=== PATIENT | female | born 1965 | race Caucasian/White ===

== ENCOUNTER → 2017-06-25 | Outpatient (CLI) | payer BC ==
--- NOTE | 2017-06-26 11:41 | MAM ---
EXAM DESCRIPTION: 3D Screening BILATERAL : Digital Mammography. CLINICAL HISTORY: 52 years Female SCREENING . No complaints. No family history breast cancer. Postmenopausal. Taking HRT 5 or more years ago. COMPARISON: Baseline study at this facility. No prior reports available. TECHNIQUE: Bilateral CC and MLO projection full-field images, 3-D tomosynthesis digital mammographic technique. Also bilateral synthesized CC/ MLO full-field images. CAD not utilized. FINDINGS: The breast parenchymal density pattern is: Scattered areas of fibroglandular density. No skin thickening or nipple retraction bilateral solitary microcalcifications. Right axillary lymph nodes. Focal asymmetry in the retroareolar left breast at the 230 clock position approximately 3 cm from the nipple. No associated microcalcifications. Retroareolar fibroglandular tissues less prominent in the right breast. No focal, stellate mass or density, focal asymmetry , and no suspicious microcalcifications right breast. IMPRESSION: BI-RADS CATEGORY: 0 - INCOMPLETE- Need additional imaging evaluation. FOLLOW-UP: Recall for additional imagin-D tomosynthesis left breast full-field images and LM and CC projection, followed by targeted left breast ultrasound. Written communication concerning the IMPRESSION and Follow-up, will be mailed to the patient and referring health care provider. Electronically signed by: Ze Almeida MD 06/26/2017 11:40 AM HUMAN RESOURCES BENEFITS ASSISTANT
== END | disposition home or self-care (01) ==
LOC: MAMMO 11:07
PROVIDERS: ATTEND Family Medicine
DX: Z12.31 Encounter for screening mammogram for malignant neoplasm of breast (principal)
CPT/HCPCS: 77063; G0202

== ENCOUNTER → 2017-07-01 | Outpatient (CLI) | payer BC | END | disposition home or self-care (01) | LOC: GMA 17:35 | PROVIDERS: ATTEND Physician Assistant | DX: M79.661 Pain in right lower leg (principal) ==

== ENCOUNTER → 2017-07-03 | Outpatient (CLI) | payer BC ==
--- NOTE | 2017-07-04 21:06 | US ---
EXAM DESCRIPTION: Venous,Lower Extremity RT: ULTRASOUND. CLINICAL HISTORY: PAIN IN RIGHT LOWER LEG COMPARISON: None Available. TECHNIQUE: Two -dimensional and doppler sonographic evaluation of the deep venous system of the right lower extremity. FINDINGS: Doppler evaluation shows normal color flow and normal phasicity and augmentation of the right common femoral vein, femoral vein, popliteal vein, greater/lesser saphenous vein, peroneal, and posterior tibial vein. The right lower extremity deep veins showed normal occlusion with transducer pressure. Two-dimensional survey showed no echogenic thrombus within these veins. IMPRESSION: 1. Duplex ultrasound evaluation of the right lower extremity deep venous system showing no evidence of thrombosis or embolism. Electronically signed by: Ze Almeida MD 07/04/2017 9:04 PM STEPDOWN NURSE Workstation: [id number]
--- NOTE | 2017-07-04 21:39 | US ---
EXAM DESCRIPTION: Breast,Left: Ultrasound CLINICAL HISTORY: 52 yearsFemaleABNORMAL MAMMO COMPARISON: Digital 3-D tomosynthesis diagnostic mammogram left breast this visit. Bilateral 3-D tomosynthesis screening study 06/25/2017. TECHNIQUE: Transcutaneous scanning of the left lateral breast utilizing two-dimensional and Doppler modes. Scanning performed by the chief wheelage clerk and Dr. Almeida. FINDINGS: Scanning at the 300 clock position of the left breast from the nipple posteriorly 3 cm. Heterogeneous fibroglandular and fatty tissues. No discrete solid mass. No cyst. No overlying skin changes. No parenchymal edema or large calcifications. IMPRESSION: 1. Bi-Rads Category 2: Benign. 2. Please refer to 3-D tomosynthesis diagnostic mammogram of the left breast and report on this visit. The FINDINGS and the follow-up plan were reviewed in person with the patient after the examination. Written communication explaining the IMPRESSION and follow-up will be mailed to the patient and referring care provider. Electronically signed by: Ze Almeida MD 07/04/2017 9:37 PM [facility] Workstation: [id number]
--- NOTE | 2017-07-05 12:00 | MAM ---
EXAM DESCRIPTION: 3D Diagnostic, Left: Digital Mammography CLINICAL HISTORY: 52 yearsFemaleABNORMAL MAMMO . Focal asymmetry retroareolar left breast.. No complaints. COMPARISON: Digital 3-D tomosynthesis bilateral screening 06/25/2017. Targeted left breast ultrasound following this examination.. Report from prior examination also reviewed. TECHNIQUE: Left breast LM projection full-field images, 3-D tomosynthesis digital mammographic technique. Also left breast synthesized LM full-field images. 2-D digital craniocaudal spot compression retroareolar left breast. CAD on the 2-D digital images. FINDINGS: The breast parenchymal density pattern is: Scattered areas of fibroglandular density. No skin thickening or nipple retraction no focal asymmetry is noted on the spot compression images over the full-field lateral medial projections of the left breast. ULTRASOUND: Scanning at the 300 clock position of the left breast from the nipple posteriorly 3 cm. Heterogeneous fibroglandular and fatty tissues. No discrete solid mass. No cyst. No overlying skin changes. No parenchymal edema or large calcifications. IMPRESSION: BI-RADS CATEGORY: 2 - BENIGN FINDINGS. FOLLOW UP: Return to routine digital bilateral screening, one year interval from May 2017. The FINDINGS and the follow-up plan were reviewed in person with the patient after the examination. Written communication explaining the IMPRESSION and follow-up will be mailed to the patient and referring care provider. According to the [employer], yearly mammograms are recommended starting at age 40 and continuing as long as a woman is in good health. Any breast change noted on a breast self-exam should be reported promptly to the patient's healthcare provider. Breast MRI is recommended for women with an approximately 20-25% or greater lifetime risk of breast cancer, including women with a strong family history of breast or ovarian cancer and women who have been treated for Hodgkin's disease. A negative mammographic report should not delay tissue diagnosis in patients with significant clinical history or physical findings. Extremely dense breast tissue limits the sensitivity of digital mammography. Electronically signed by: Ze Almeida MD 07/05/2017 11:59 AM INSTRUCTIONAL SUPPORT TECHNICIAN
== END | disposition home or self-care (01) ==
LOC: MAMMO 15:25
PROVIDERS: ATTEND Family Medicine
DX: R92.8 Other abnormal and inconclusive findings on diagnostic imaging of breast (principal)
CPT/HCPCS: 76641; 93971; G0206; G0279

== ENCOUNTER 2017-07-05 11:54 | Emergency (ER) | payer BC ==
[2017-07-05 12:11] VITALS: TEMP 99.3
--- NOTE | 2017-07-05 12:12 | ED.PDOC ---
History of Present Illness - General Chief Complaint: Cardiovascular Problem Stated Complaint: dizzy, nausea Time Seen by Provider: 07/05/17 12:11 Source: patient Exam Limitations: no limitations - History of Present Illness Initial Comments: Sharri Maloney 52 y/om female stated that she felt nauseated all day since yesterday with dull headache all over able to go to work ate breakfast this am.Denies vomiting,fever ,diarrhea,cough.Denies chest pain. Timing/Duration: 24 hours Severity: moderate Improving Factors: rest Worsening Factors: nothing Associated Symptoms: other - see hpi Allergies/Adverse Reactions: Allergies Butorphanol [From Stadol] Allergy (Verified 07/05/17 12:09) Nausea Penicillins Allergy (Verified 07/05/17 12:09) Rash Home Medications: Ambulatory Orders Ondansetron [Zofran Odt] 4 mg PO Q8HRS PRN #10 tab 07/05/17 Review of Systems - Review of Systems Constitutional: States: no symptoms reported EENTM: States: no symptoms reported Respiratory: States: no symptoms reported Cardiology: States: no symptoms reported Gastrointestinal/Abdominal: States: no symptoms reported, see HPI Genitourinary: States: no symptoms reported Musculoskeletal: States: no symptoms reported Skin: States: no symptoms reported Neurological: States: no symptoms reported Past Medical History (General) - Patient Medical History Hx Cardiac Disorders: Yes - PAT Hx Hypertension: Yes Hx Gastroesophageal Reflux: Yes Hx Other PMH: Yes - dvt,RA,Collagen Colitis Surgical History: appendectomy, other - ,hysterectomy,c-spine - Vaccination History Hx Tetanus, Diphtheria Vaccination: No Hx Influenza Vaccination: No - Social History Hx Tobacco Use: No Hx Alcohol Use: No Hx Substance Use: No Hx Substance Use Treatment: No Hx Depression: No - Activities of Daily Living Patient Lives Alone: No - Female History Patient is a Female of Child Bearing Age (10 -59 yrs old): No Family Medical History - Family History Mother Family History: Unknown Hx Cardiac Disease: Yes - multiple family members Hx Family Diabetes: Yes - multiple family members Hx Family;Other: PSORIATIC ARTHRITIS-son Physical Exam - Physical Exam General Appearance: Alert, Anxious, No apparent distress Eye Exam: bilateral normal Ears, Nose, Throat: hearing grossly normal, normal ENT inspection, normal pharynx Neck: non-tender, full range of motion, supple Respiratory: chest non-tender, lungs clear, normal breath sounds Cardiovascular/Chest: normal peripheral pulses, regular rate, rhythm, no gallop , no murmur, tachycardia - hr-120 Peripheral Pulses: radial,right: 2+, radial,left: 2+ Gastrointestinal/Abdominal: normal bowel sounds, non tender, soft, no organomegaly Back Exam: normal inspection, no CVA tenderness, no vertebral tenderness Neurologic: no motor/sensory deficits, alert, oriented x 3 Skin Exam: normal color, warm/dry Lymphatic: no adenopathy Progress - Progress Progress: 07/05/17 12:19 Last Vital Signs Temp 99.3 F 07/05/17 12:02 Pulse 125 H 07/05/17 12:10 Resp 20 07/05/17 12:02 BP 143/105 07/05/17 12:02 Pulse Ox 100 07/05/17 12:02 07/05/17 15:29 No further nausea/vomiting since arrival at er sitting mostly on her bed talking - Results/Orders Results/Orders: Laboratory Tests 07/05/17 07/05/17 07/05/17 12:12 12:57 12:57 WBC 16.0 H RBC 5.16 Hgb 14.5 Hct 43.2 MCV 83.8 MCH 28.1 MCHC 33.5 RDW 14.6 H Plt Count 319 MPV 6.8 L Absolute Neuts (auto) 11.60 H Absolute Lymphs (auto) 2.50 Absolute Monos (auto) 1.70 H Absolute Eos (auto) 0.00 Absolute Basos (auto) 0.20 H Neutrophils % 72.7 Lymphocytes % 15.6 L Monocytes % 10.6 H Eosinophils % 0.1 L Basophils % 1.0 PT 11.8 INR 1.040 PTT (SP) 24.2 L D-Dimer, Quantitative < 200 Sodium 134 L Potassium 3.1 L Chloride 98 L Carbon Dioxide 22 Anion Gap 17.1 BUN 30 H Creatinine 1.56 H BUN/Creatinine Ratio 19.2 Random Glucose 165 H Serum Osmolality 278.1 Calcium 9.9 Magnesium 1.9 Total Bilirubin 0.5 Direct Bilirubin 0.1 Indirect Bilirubin 0.4 AST 24 ALT 34 Alkaline Phosphatase 97 Creatine Kinase 41 CK-MB (CK-2) 0.8 CK-MB (CK-2) % Not Reportable Troponin I 0.03 B-Natriuretic Peptide 35.0 Serum Total Protein 8.1 Albumin 4.2 Lipase Urine Color Urine Appearance Urine pH Ur Specific [place] Urine Protein Urine Glucose (UA) Urine Ketones Urine Blood Urine Nitrite Urine Bilirubin Urine Urobilinogen Ur Leukocyte Esterase Urine RBC Urine WBC Ur Epithelial Cells Urine Bacteria Urine Opiates Screen Negative Urine Barbiturates Positive H Ur Phencyclidine Scrn Negative U Amphetamin/Meth Scrn Negative U Benzodiazepines Scrn Negative U Cocaine Metab Screen Negative U Cannabinoids Screen Negative 07/05/17 07/05/17 12:57 13:51 WBC RBC Hgb Hct MCV MCH MCHC RDW Plt Count MPV Absolute Neuts (auto) Absolute Lymphs (auto) Absolute Monos (auto) Absolute Eos (auto) Absolute Basos (auto) Neutrophils % Lymphocytes % Monocytes % Eosinophils % Basophils % PT INR PTT (SP) D-Dimer, Quantitative Sodium Potassium Chloride Carbon Dioxide Anion Gap BUN Creatinine BUN/Creatinine Ratio Random Glucose Serum Osmolality Calcium Magnesium Total Bilirubin Direct Bilirubin Indirect Bilirubin AST ALT Alkaline Phosphatase Creatine Kinase CK-MB (CK-2) CK-MB (CK-2) % Troponin I B-Natriuretic Peptide Serum Total Protein Albumin Lipase 30 Urine Color Yellow Urine Appearance Cloudy Urine pH 5.5 Ur Specific [place] >= 1.030 Urine Protein 30 Urine Glucose (UA) Negative Urine Ketones 15 H Urine Blood Negative Urine Nitrite Negative Urine Bilirubin Moderate Urine Urobilinogen 0.2 Ur Leukocyte Esterase Trace H Urine RBC 0 Urine WBC 1-3 Ur Epithelial Cells 5-10 Urine Bacteria Rare Urine Opiates Screen Urine Barbiturates Ur Phencyclidine Scrn U Amphetamin/Meth Scrn U Benzodiazepines Scrn U Cocaine Metab Screen U Cannabinoids Screen - EKG/XRAY/CT EKG: Sinus, Tachy Comments: HR-121;low voltage qrs XRAY: abdomen - no acute abnormalities Departure - Departure Clinical Impression: Dehydration symptoms, Hypokalemia due to loss of potassium Nausea & vomiting Qualifiers: Vomiting type: unspecified Vomiting Intractability: non-intractable Qualified Code(s): R11.2 - Nausea with vomiting, unspecified Time of Disposition: 14:31 Disposition: Discharge to Home or Self Care Departure Forms: ED Discharge - Pt. Copy, Patient Portal Self Enrollment Instructions: Nausea and Vomiting-Adult Diet: other - clear liquids for tonight then to advance diet as tolerated;Avoid spicy ,greasy,chiken noodle soups Referrals: Jonathon Malhotra MD [Primary Care Provider] - 1-2 Weeks Prescriptions: Ondansetron [Zofran Odt] 4 mg PO Q8HRS PRN #10 tab PRN Reason: Nausea Home Medications: Ambulatory Orders Ondansetron [Zofran Odt] 4 mg PO Q8HRS PRN #10 tab 07/05/17 Additional Instructions: RETURN TO ER NEEDED IF SYMPTOMS WORSENS
[2017-07-05] MEDS ORDERED: SODIUM CHLORIDE 0.9% 1000ML 1,000 ML IVS ONE (12:14)
[2017-07-05] MEDS ORDERED: PROMETHAZINE HCL INJ 25 MG/ML VIAL IM ONE (12:48)
--- NOTE | 2017-07-05 13:42 | RAD ---
EXAM DESCRIPTION: Chest,1 View CLINICAL HISTORY: 52 years, Female, pain COMPARISON: FINDINGS: Adequate inspiration. No consolidation. Some minimal fibrotic changes at the bases. Cardiac silhouette normal. Cervical spine surgery noted. IMPRESSION: Clear lungs and normal cardiac silhouette Electronically signed by: Keven Jennings MD 07/05/2017 1:41 PM [facility]
--- NOTE | 2017-07-05 14:17 | RAD ---
EXAM DESCRIPTION: Abdomen Flat Upright CLINICAL HISTORY: pain COMPARISON: None. FINDINGS: AP supine and upright views of the abdomen show a nonspecific, nonobstructive bowel gas pattern with no evidence for free intraperitoneal air. No air-filled dilated loops of small bowel are seen. No significant air-fluid levels are identified. No obvious organomegaly is seen. No abnormal calcifications are seen in the expected location of the renal collecting systems. Visualized lung bases are unremarkable. IMPRESSION: Nonspecific abdominal series Electronically signed by: Sae Anand MD 07/05/2017 2:16 PM CHILDREN'S ATTENDANT
[2017-07-05 14:26] VITALS: O2SAT 100
[2017-07-05] MEDS ORDERED: SODIUM CHLORIDE 0.9% 500ML 500 ML IVS ONE (14:32)
[2017-07-05 15:37] VITALS: BP 150/94
== END 2017-07-05 15:36 | disposition home or self-care (01) ==
LOC: ER 11:54
DX: E87.6 Hypokalemia (principal); E86.0 Dehydration; R11.2 Nausea with vomiting, unspecified; Z88.0 Allergy status to penicillin; Z88.8 Allergy status to other drugs, medicaments and biological substances; Z79.899 Other long term (current) drug therapy; I10 Essential (primary) hypertension; K21.9 Gastro-esophageal reflux disease without esophagitis
CPT/HCPCS: 36415; 71010; 74010; 80048; 80076; 80307; 81001; 82550; 82553; 83605; 83690; 83880; 84484; 85025; 85379; 85610; 85730; 87502; 93005; J2550; J7030; J7040

== ENCOUNTER → 2017-09-26 | Outpatient (CLI) | payer BC | LOC: GMAJ 10:36 | PROVIDERS: ATTEND Family Medicine | DX: I10 Essential (primary) hypertension (principal) ==

== ENCOUNTER → 2018-03-27 | Outpatient (CLI) | payer BC | LOC: GMAJ 10:30 | PROVIDERS: ATTEND Family Medicine | DX: I10 Essential (primary) hypertension (principal) ==

== ENCOUNTER → 2018-08-08 | Outpatient (CLI) | payer BC | LOC: GMAJ 11:43 | PROVIDERS: ATTEND Family Medicine | DX: E55.9 Vitamin D deficiency, unspecified (principal) ==

== ENCOUNTER → 2018-10-16 | Outpatient (CLI) | payer BC ==
--- NOTE | 2018-10-17 07:49 | MRI ---
EXAM: Lumbar Spine w/o Contrast CLINICAL HISTORY: LOW BACK PAIN COMPARISON STUDY: MRI lumbar spine without contrast January 21, 2009 TECHNICAL: MRI images were acquired through the lumbar spine in multiple planes and multiple sequences. IV contrast was not given. FINDINGS: The lumbar vertebral bodies are in appropriate anatomic alignment. There is no evidence of fracture. There are no bone marrow signal changes evident indicate edema or inflammation. The conus medullaris has a normal configuration. L1-2: A central disc protrusion measures 3 mm and flattens the ventral thecal sac. There is no central spinal canal stenosis. The exiting foramina are patent and there is no nerve root impingement. Moderate degenerative changes of facets and moderate ligamentum flavum hypertrophy are present. Anterior protrusion measures 7.5 mm. L2-3:A central disc protrusion measures 3 mm and flattens the ventral thecal sac. There is no central spinal canal stenosis. Lateral disc protrusion extending into the right exiting foramina 4-5 mm in the left 5 mm The exiting foramina are narrowed and there is contact of the left nerve root. Moderate degenerative changes of facets and moderate ligamentum flavum hypertrophy are present. Anterior protrusion measures 9 mm. L3-4: There is a mild diffuse annular bulge but no focal disc herniation. There is no central spinal canal stenosis or neurologic impingement. There are moderate degenerative changes of facets and moderate ligamentum flavum hypertrophy. L4-5: No disc herniation, canal stenosis or neurologic impingement. Moderate degenerative changes of facets and ligamentum flavum hypertrophy are noted. The nerve roots exit without impingement. L5-S1:No disc herniation, canal stenosis or neurologic impingement. Moderate degenerative changes of facets and ligamentum flavum hypertrophy are noted. The nerve roots exit without impingement. IMPRESSION: 1. Contact of the left exiting nerve root at L2-3 secondary to a 5 mm lateral disc protrusion. 2. Anterior and posterior disc protrusions are most pronounced at L1-2 and L2-3 as discussed. 3. No extruded disc herniation or central spinal canal stenosis. 4. Moderate degenerative changes of the facets and ligamentum flavum hypertrophy diffusely. Electronically signed by: Nav Webster MD 10/17/2018 7:46 AM CDT
== END ==
LOC: MRI 08:12
PROVIDERS: ATTEND Family Medicine
DX: M51.27 Other intervertebral disc displacement, lumbosacral region (principal)